=== PATIENT | female | born 1970 | race Caucasian/White ===

== ENCOUNTER 2017-06-20 19:56 | Emergency (ER) | payer BC ==
[~2017-06-20] VITALS: Ht 170.2 cm; Wt 91.0 kg
[2017-06-20] MEDS ORDERED: DOXY100C43 PO (21:15)
[2017-06-20] MEDS ORDERED: doxycycline hyclate 100mg tablet.DR PO STA (21:19)
[2017-06-20 21:40] VITALS: BP 134/93
== END 2017-06-20 21:42 | disposition home or self-care (01) ==
LOC: ER 19:56
DX: L03.113 Cellulitis of right upper limb (principal); Z85.3 Personal history of malignant neoplasm of breast; Z88.5 Allergy status to narcotic agent; Z88.8 Allergy status to other drugs, medicaments and biological substances; Z79.899 Other long term (current) drug therapy
CPT/HCPCS: 99283